=== PATIENT | male | born 1960 | race Asian ===

== ENCOUNTER 2017-01-08 16:13 | Emergency (ER) | payer OTHER ==
--- NOTE | 2017-01-08 16:25 | Emergency Department Report ---
Chief Complaint: High BP Stated Complaint: HYPERTENSION Time Seen by Provider: 01/08/17 16:19 - HPI History of Present Illness: PT states yesterday morning he rubbed his right eye and he has a nelson box in his L eye. PT states he went to [facility] and has his vision checked and was told that he might have an inflamed optic nerve. PT was told that his bp might be high. PT went to PCP and has appointment next week. PT was sent to account management specialist and then sent to ED for scan - ROS Review of Systems: - smith + visual changes - Exam Physical Exam: pt looks well, non toxic steady gait MSE screening note: Focused history and physical exam performed. Due to findings the following was ordered: labs, ct Patient discussed with doctor:: KONG RAYMUNDO ED Disposition for MSE Condition: Stable
[2017-01-08 17:11] LABS: Anion Gap 28 mmol/L; BUN/Creatinine Ratio 14.54; Basophils % (Auto) 0.4 % (0.0-1.8); Blood Urea Nitrogen 16 mg/dL (9-20); Calcium 9.5 mg/dL (8.4-10.2); Carbon Dioxide 17 mmol/L (22-30); Chloride 98.7 mmol/L (98-107); Glucose 101 mg/dL (75-100); Hematocrit 48.1 % (35.5-45.6); Hemoglobin 16.3 gm/dl (11.8-15.2); Mean Corpuscular HGB Conc 34 % (32-34); Mean Corpuscular Hemoglobin 30 pg (28-32); Mean Corpuscular Volume 88 fl (84-94); Platelet Count 264 K/mm3 (140-440); Potassium 5.2 mmol/L (3.6-5.0); Red Blood Count 5.45 M/mm3 (3.65-5.03); Red Cell Distribution Width 14.8 % (13.2-15.2); Sodium 138 mmol/L (137-145); White Blood Count 13.2 K/mm3 (4.5-11.0)
--- NOTE | 2017-01-08 18:34 | Cat Scan Report ---
FINAL REPORT PROCEDURE: CT HEAD/BRAIN WO CON TECHNIQUE: Computerized tomography of the head was performed without contrast material. HISTORY: visual changes COMPARISON: No prior studies are available for comparison. FINDINGS: Moderate changes of chronic sinusitis are seen. Mastoid air cells appear clear. No calvarial fracture is seen. Dilated VR spaces are seen in the inferior aspect of the basal ganglia. Cerebral ventricles are normal in size. No acute intracranial hemorrhage or mass effect is seen. IMPRESSION: A few dilated VR spaces are seen in the basal ganglia without evidence of acute abnormality.
--- NOTE | 2017-01-09 02:05 | Emergency Department Report ---
HPI - General Chief Complaint: High BP Time Seen by Provider: 01/08/17 16:19 - HPI HPI: - HPI History of Present Illness: PT states yesterday morning he rubbed his right eye and he has a nelson box in his L eye. PT states he went to [facility] and has his vision checked and was told that he might have an inflamed optic nerve. PT was told that his bp might be high. PT went to PCP and was sent to management development specialist and then sent to ED for scan - ROS Review of Systems: - smith + visual changes - Exam Physical Exam: pt looks well, non toxic steady gait ED Past Medical Hx - Past Medical History Previous Medical History?: No Hx Hypertension: Yes - Surgical History Past Surgical History?: No - Social History Smoking Status: Current Every Day Smoker Substance Use Type: Alcohol - Medications Home Medications: Home Medications Medication Instructions Recorded Confirmed Last Taken Type Hydrochlorothiazide [HCTZ] 25 mg PO QDAY #30 tablet 01/09/17 Unknown Rx ED Review of Systems ROS: Stated complaint: HYPERTENSION Other details as noted in HPI Comment: All other systems reviewed and negative Constitutional: no symptoms reported Eyes: vision change Physical Exam - Physical Exam Vital Signs: Vital Signs 01/08/17 01/08/17 01/08/17 16:19 22:39 23:01 Temperature 97.5 F L 97.9 F Pulse Rate 80 72 Respiratory 16 18 Rate Blood Pressure 141/97 144/99 Blood Pressure [Left] O2 Sat by Pulse 99 69 L 99 Oximetry 01/08/17 01/08/17 01/08/17 23:11 23:21 23:30 Temperature Pulse Rate 63 60 62 Respiratory 15 11 L 13 Rate Blood Pressure 151/90 153/91 153/92 Blood Pressure [Left] O2 Sat by Pulse 97 98 99 Oximetry 01/08/17 01/08/17 01/08/17 23:41 23:51 23:53 Temperature Pulse Rate 61 67 59 L Respiratory 7 L 9 L Rate Blood Pressure 153/92 137/87 Blood Pressure [Left] O2 Sat by Pulse 97 96 Oximetry 01/09/17 01/09/17 01/09/17 00:00 00:08 00:11 Temperature Pulse Rate 60 74 59 L Respiratory 13 16 10 L Rate Blood Pressure 136/87 136/87 Blood Pressure 137/67 [Left] O2 Sat by Pulse 93 95 98 Oximetry 01/09/17 02:00 Temperature Pulse Rate 83 Respiratory 16 Rate Blood Pressure Blood Pressure 141/85 [Left] O2 Sat by Pulse 97 Oximetry Physical Exam: Gen. alert and oriented 3 in no distress Head atraumatic normocephalic Eyes PERR LA EOMI, vision loss left eye lower half field Chest regular rate and rhythm normal S1-S2 lungs clear bilaterally Abdomen soft nondistended Back no point tenderness paravertebral tenderness Neuro no focal deficit. Psych normal mood. ED Course Vital Signs 01/08/17 01/08/17 01/08/17 16:19 22:39 23:01 Temperature 97.5 F L 97.9 F Pulse Rate 80 72 Respiratory 16 18 Rate Blood Pressure 141/97 144/99 Blood Pressure [Left] O2 Sat by Pulse 99 69 L 99 Oximetry 01/08/17 01/08/17 01/08/17 23:11 23:21 23:30 Temperature Pulse Rate 63 60 62 Respiratory 15 11 L 13 Rate Blood Pressure 151/90 153/91 153/92 Blood Pressure [Left] O2 Sat by Pulse 97 98 99 Oximetry 01/08/17 01/08/17 01/08/17 23:41 23:51 23:53 Temperature Pulse Rate 61 67 59 L Respiratory 7 L 9 L Rate Blood Pressure 153/92 137/87 Blood Pressure [Left] O2 Sat by Pulse 97 96 Oximetry 01/09/17 01/09/17 01/09/17 00:00 00:08 00:11 Temperature Pulse Rate 60 74 59 L Respiratory 13 16 10 L Rate Blood Pressure 136/87 136/87 Blood Pressure 137/67 [Left] O2 Sat by Pulse 93 95 98 Oximetry 01/09/17 02:00 Temperature Pulse Rate 83 Respiratory 16 Rate Blood Pressure Blood Pressure 141/85 [Left] O2 Sat by Pulse 97 Oximetry ED Medical Decision Making - Lab Data Result diagrams: 01/08/17 16:33 01/08/17 16:33 Critical care attestation.: If time is entered above; I have spent that time in minutes in the direct care of this critically ill patient, excluding procedure time. ED Disposition Clinical Impression: Hypertension Disposition: DC-01 TO HOME OR SELFCARE Is pt being admited?: No Does the pt Need Aspirin: No Condition: Stable Instructions: Hypertension (ED) Prescriptions: Hydrochlorothiazide [HCTZ] 25 mg PO QDAY #30 tablet Referrals: PRIMARY CARE, [Primary Care Provider] - 3-5 Days
--- NOTE | 2017-01-09 02:15 | Cat Scan Report ---
FINAL REPORT PROCEDURE: CT ANGIO HEAD TECHNIQUE: Computerized tomographic angiography of the head was performed after the IV injection of iodinated nonionic contrast including image processing. The image data was postprocessed using 2-dimensional multiplanar reformatted (MPR) and 3-dimensional (MIP and/or volume rendered) techniques. HISTORY: H/A, VISION CHANGES POSS ANEURYSM COMPARISON: No prior studies are available for comparison. FINDINGS: Cerebrum: No evidence of hemorrhage, acute ischemia or mass. Cerebellum: No evidence of hemorrhage, acute ischemia or mass. Subarachnoid spaces and ventricles: Normal. Intracranial vessels: Carotid siphon: Normal. Anterior cerebral: Normal. Middle cerebral: Normal. Posterior cerebral:Normal. Vertebral arteries including basilar: Normal. Aneurysms: None. Dural sinuses: Normal. IMPRESSION: Normal evaluation
[2017-01-09 02:25] VITALS: BP 130/88
== END 2017-01-09 02:36 | disposition home or self-care (01) ==
LOC: ED 16:13
DX: I10 Essential (primary) hypertension (principal); F17.200 Nicotine dependence, unspecified, uncomplicated
CPT/HCPCS: 36415; 70450; 70496; 80048; 85025; 99284; Q9967

== ENCOUNTER 2017-03-25 05:51 | Day surgery (SDC) | payer OTHER ==
[~2017-03-25 05:51] MED LIST: ANCEF/STERILE WATER 2 GM/20 ML IV NR; NACL 0.9% 1000 ML 1,000 ML IV SCH; PEPCID PO NR; VERSED IV NR
--- NOTE | 2017-03-25 07:08 | Anesthesia Consultation ---
Anesthesia Consult and Med Hx Date of service: 03/25/17 - Airway Anesthetic Teeth Evaluation: Edentulous ROM Head & Neck: Adequate Mental/Hyoid Distance: Adequate Mallampati Class: Class II Intubation Access Assessment: Probably Good - Pulmonary Exam CTA: Yes - Cardiac Exam Cardiac Exam: RRR - Pre-Operative Health Status ASA Pre-Surgery Classification: ASA2 Proposed Anesthetic Plan: General - Pulmonary Hx Smoking: Yes (1-1 1/2 PPD X 40 YRS) Hx Sleep Apnea: No (SHARON PRE SCREEN HIGH RISK) - Cardiovascular System Hx Hypertension: Yes (X 3 MONTHS) - Central Nervous System Hx Seizures: No CVA: No - Endocrine Hx Renal Disease: No Hx Liver Disease: No Hx Non-Insulin Dependent Diabetes: No - Other Systems Hx Alcohol Use: Yes (occasional) Hx Cancer: No - Additional Comments Anesthesia Medical History Comments: NAC
--- NOTE | 2017-03-25 07:09 | Anesthesia Day of Surgery ---
Anesthesia Day of Surgery - Day of Surgery Patient Examined: Yes Patient H&P Reviewed: Yes Patient is NPO: Yes
[2017-03-25] MEDS ORDERED: PERCOCET 5/325 PO PRN (07:24)
[2017-03-25] MEDS ORDERED: DILAUDID IV PRN (07:24)
[2017-03-25] MEDS ORDERED: DIPRIVAN 10 MG/ML IV ONE (07:39)
[2017-03-25] MEDS ORDERED: XYLOCAINE MPF 2% ONE (07:41)
[2017-03-25] MEDS ORDERED: DILAUDID ONE (07:42)
[2017-03-25] MEDS ORDERED: ZOFRAN IV PRN (08:00)
[2017-03-25] MEDS ORDERED: VERSED IV NR (08:00)
[2017-03-25] MEDS ORDERED: NACL BACTERIOSTATIC INFILTRATI ONE (08:28)
[2017-03-25] MEDS ORDERED: ZOFRAN ONE (08:40)
[2017-03-25] MEDS ORDERED: NACL 0.9% 1000 ML 1,000 ML ONE (08:42)
[2017-03-25] MEDS ORDERED: NACL 0.9% IR ONE (09:00)
--- NOTE | 2017-03-25 09:18 | Short Stay Summary ---
Short Stay Documentation Date of service: 03/25/17 Narrative H&P: 56 yr old male with recurrent left hydrocele----softball size - History Past Medical History: No medical history Past Surgical History: Other (hydrocelectomy & vasectomy in past) - Allergies and Medications Current Medications: Allergies No Known Allergies Allergy (Verified 01/08/17 16:25) Home Medications Medication Instructions Recorded Confirmed Last Taken Type Hydrochlorothiazide [HCTZ] 25 mg PO QDAY #30 tablet 01/09/17 03/25/17 03/24/17 Rx Aspirin [Adult Low Dose Aspirin EC] 81 mg PO DAILY 03/20/17 03/25/17 03/11/17 History Fenofibrate [Tricor] 145 mg PO QDAY 03/20/17 03/25/17 03/24/17 History Active Medications Cefazolin Sodium (Ancef/Sterile Water 2 Gm/20 Ml) 2 gm IV PREOP NR Stop: 03/25/17 23:00 Famotidine (Pepcid) 20 mg PO PREOP NR Stop: 03/27/17 19:59 Last Admin: 03/25/17 06:40 Dose: 20 mg Hydromorphone HCl (Dilaudid) 0.5 mg IV Q10MIN PRN PRN Reason: Pain , Severe (7-10) Stop: 03/25/17 10:00 Sodium Chloride (Nacl 0.9% 1000 Ml) 1,000 mls @ 100 mls/hr IV DIRECT SULMA Last Admin: 03/25/17 07:00 Dose: 100 mls/hr Midazolam HCl (Versed) 2 mg IV PREOP NR Stop: 03/25/17 10:00 Last Admin: 03/25/17 07:13 Dose: 2 mg - Physical exam General appearance: no acute distress, well-nourished Integumentary: no rash, no growths HEENT: Atraumatic, PERRLA, EOMI Lungs: Clear to auscultation Breasts: deferred Heart: Regular rate, No murmurs Gastrointestinal: normal Male Genitourinary: scrotal edema Rectal Exam: deferred Extremities: no ischemia - Brief post op/procedure progress note Date of procedure: 03/25/17 Pre-op diagnosis: left hydrocele Post-op diagnosis: other (bilat hydrocele) Procedure: left hydrocelectomy, rt aspiration left scrotaplasty Anesthesia: GETA Surgeon: CLINT ANDREWS Estimated blood loss: minimal Pathology: list (left scrotal tissue, left sac) Condition: stable - Hospital course Hospital course: mary & louie on chart - Disposition Condition at discharge: Stable Disposition: DC-01 TO HOME OR SELFCARE Short Stay Discharge Plan Follow up with: MARLIN HEALY MD [Primary Care Provider] - 7 Days
--- NOTE | 2017-03-25 10:08 | Operative Report ---
PREOPERATIVE DIAGNOSIS: Left recurrent hydrocele. POSTOPERATIVE DIAGNOSES: Left recurrent hydrocele, right hydrocele, left redundant scrotal skin. PROCEDURE: Left hydrocelectomy, left scrotoplasty, aspiration of right hydrocele, 15 mL of fluid. SURGEON: Misha Chand MD ANESTHESIA: General. ANESTHESIOLOGIST: Sandra Cooley MD ESTIMATED BLOOD LOSS: Minimal. FLUIDS: Crystalloid. COMPLICATIONS: No complications. INDICATIONS: This 56-year-old gentleman is known to our service for hydrocelectomy and vasectomy in the remote past. He presents now for recurrent hydrocele that increased to approximately a little bigger than a softball on the left side with discomfort. He presents now for removal. DESCRIPTION OF PROCEDURE: The patient was taken to the operative suite, placed in a supine position. After adequate general anesthesia, he was prepped and draped in a sterile fashion. A left hemiscrotal incision was made. It was marked to excise a wedge of the scrotal skin to reduce the large skin burden. Approximately 5 x 3 cm wedge was removed and sent for routine pathologic evaluation. Large hydrocele sac could be appreciated. It was opened as the serosanguineous fluid was evacuated. The rest of the hydrocele was removed, it was actually loculated as well. Testicle appeared normal. Whipstitch, using 2-0 chromic in a running fashion was used on the remnant hydrocele sac. Examination revealed a small lateral fluid on the right side, I elected do an aspiration of 14 mL serosanguineous fluid on the right. Copious irrigation was performed, adequate hemostasis achieved. Dartos layer was closed with 2-0 Vicryl in a running fashion. Prior to closure, with a stab incision, quarter-inch Owanka was placed in the left hemiscrotum. Skin was closed with 3-0 chromic in interrupted fashion. A Owanka was secured with 3-0 chromic in interrupted fashion. Scrotal support was placed. The patient was extubated and taken to recovery room. He will go home on [place] and [employer]. JOB# [id number] [facility]
--- NOTE | 2017-03-25 10:37 | Post Anesthesia Evaluation ---
- Post Anesthesia Evaluation Patient Participated: Yes Airway Patent: Yes Stable Respiratory Function: Yes Nausea/Vomiting: No Temp > 96.8F: Yes Pain Manageable: Yes Adequeate Hydration: Yes Anesthesia Complications: No Block Receding Appropriately: Not Applicable Patient on Ventilator: No
[2017-03-25 10:38] VITALS: BP 133/69
== END 2017-03-25 11:00 | disposition home or self-care (01) ==
LOC: OR 05:51
PROVIDERS: ATTEND Urology
DX: N43.3 Hydrocele, unspecified (principal); I10 Essential (primary) hypertension; F17.210 Nicotine dependence, cigarettes, uncomplicated; Z79.899 Other long term (current) drug therapy; Z98.890 Other specified postprocedural states; Z72.89 Other problems related to lifestyle
CPT/HCPCS: 36415; 55040; 55175; 84132; 88302; 88305; J0690; J1170; J2250; J2405; J2704; J7030